=== PATIENT | male | born 1945 | race Caucasian/White ===

== ENCOUNTER 2019-06-12 15:40 | Emergency (ER) | payer OTHER ==
[~2019-06-12] VITALS: Ht 165.1 cm; Wt 99.8 kg
[2019-06-12] MEDS ORDERED: ASPIRIN 325 MG TABLET ONE (15:55)
[2019-06-12] MEDS ORDERED: DILTIAZEM HCL 25 MG IV ONE (15:56)
[2019-06-12 16:00] VITALS: BP 156/102
[2019-06-12] MEDS ORDERED: ASPIRIN 325 MG TABLET PO ONE (16:00)
[2019-06-12] MEDS ORDERED: DILTIAZEM HCL 25 MG IV IV ONE (16:00)
--- NOTE | 2019-06-12 16:06 | NUR ---
PT DOES NOT REMEMBER WHAT MEDICATION IS HE TAKING CURRENTLY. CAN NOT VERIFY HOME MEDICATION LIST.
[2019-06-12 16:23] LABS: EOSINOPHILS # (AUTO) 0.1 K/uL (0.0-0.7); EOSINOPHILS % (AUTO) 0.3 % (0.0-7.0); HEMATOCRIT 38.1 % (36.7-47.1); HEMOGLOBIN 11.7 g/dL (12.5-16.3); LYMPHOCYTES # (AUTO) 0.4 K/uL (20.0-40.0); LYMPHOCYTES % (AUTO) 1.6 % (20.5-51.5); MEAN CORPUSCULAR HEMOGLOBIN 23.8 uug (23.8-33.4); MEAN CORPUSCULAR HGB CONC 31 g/dL (32.5-36.3); MEAN CORPUSCULAR VOLUME 77.7 fL (73.0-96.2); MONOCYTES # (AUTO) 1.2 K/uL (2.0-10.0); MONOCYTES % (AUTO) 5.3 % (0.0-11.0); NEUTROPHILS # (AUTO) 20.8 K/uL (1.8-8.9); NEUTROPHILS % (AUTO) 92.8 % (38.5-71.5); PLATELET COUNT (AUTO) 277 K/uL (152-348); WHITE BLOOD COUNT (AUTO) 22.4 K/uL (3.6-10.2)
--- NOTE | 2019-06-12 16:34 | NUR ---
Nidia Tolentino, , stating he is a [facility] patient. Admitting speaking with her to obtain for information
[2019-06-12 16:37] LABS: CARBON DIOXIDE 32 mmol/L (21-32); CHLORIDE 99 mmol/L (98-107); CREATININE 1.4 mg/dL (0.6-1.3); GLUCOSE 212 mg/dL (74-106); POTASSIUM 4.6 mmol/L (3.5-5.1); UREA NITROGEN, BLOOD 22 mg/dL (7-18)
[2019-06-12 16:42] LABS: ALANINE AMINOTRANSFERASE 26 U/L (16-63); ALKALINE PHOSPHATASE 72 U/L (50-136); ASPARTATE AMINOTRANSFERASE 16 U/L (15-37); BILIRUBIN,DIRECT 0.4 mg/dL (0.0-0.2); BILIRUBIN,TOTAL 1.3 mg/dL (0.2-1.0); TOTAL PROTEIN, SERUM 7.2 g/dL (6.4-8.2)
[2019-06-12] MEDS ORDERED: HYDROCODONE/APAP 5-325MG TABLET PO ONE (17:00)
[2019-06-12] MEDS ORDERED: HYDROCODONE/APAP 5-325MG TABLET ONE (17:04)
[2019-06-12] MEDS ORDERED: FLUO40CA49 PO (17:04)
[2019-06-12] MEDS ORDERED: FEXO180T94 PO (17:05)
[2019-06-12] MEDS ORDERED: CEPH250C PO (17:05)
[2019-06-12] MEDS ORDERED: LOSA100T31 PO (17:05)
[2019-06-12] MEDS ORDERED: PRAV20TA4 PO (17:05)
[2019-06-12] MEDS ORDERED: PANT40TA4 PO (17:05)
[2019-06-12] MEDS ORDERED: CEFTRIAXONE /D5W 50ML IVPB **ER PYXIS IV ONE (17:45)
[2019-06-12] MEDS ORDERED: CEFTRIAXONE 1 G in IV DEXTROSE 5% 50 ML IV ONE (17:45)
[2019-06-12] MEDS ORDERED: IV NORMAL SALINE 1000 ML BAG IV ONE (17:45)
[2019-06-12] MEDS ORDERED: AZITHROMYCIN IV 500 MG in IV DEXTROSE 5% 250 ML IV ONE (17:45)
--- NOTE | 2019-06-12 18:27 | NUR ---
[facility] CALLED. AWAITING CALLBACK.
[2019-06-12] MEDS ORDERED: AZITHROMYCIN 500MG/ D5W 250ML IVPB **ER PYXIS ONLY IV ONE (18:48)
--- NOTE | 2019-06-12 18:57 | NUR ---
HAYDEN PAPPAS SPEAKING W/ DR. FLORES FROM [place].
--- NOTE | 2019-06-12 19:06 | NUR ---
SHIFT REPORT GIVEN TO NEIL SMITH.
--- NOTE | 2019-06-12 19:08 | NUR ---
Assumed care of patient. No acute distress noted. VSS.
--- NOTE | 2019-06-12 20:14 | NUR ---
Patient in bed, no acute distress noted. VSS. Awaiting further update from [facility].
[2019-06-12 20:34] LABS: BAND % (MANUAL) 19 % (0-10); LYMPHOCYTES % (MANUAL) 2 % (20-40); MONOCYTES % (MANUAL) 5 % (2-10); NEUTROPHILS % (MANUAL) 74 % (42-75)
--- NOTE | 2019-06-12 20:39 | NUR ---
SPoke to [facility], they are still looking for a bed for this patient.
--- NOTE | 2019-06-12 22:14 | NUR ---
SPoke to [facility], patient going to [facility] Accepting ALICIA GOMEZ Room- 5316-B Report #- [id number]
--- NOTE | 2019-06-12 22:19 | NUR ---
Report given to Susi SMITH at [facility] , Room 5370
--- NOTE | 2019-06-12 22:33 | NUR ---
Report given to SARAH Ye . [facility] ALS transport here for patient cloth picker. All belongings with patient . No acute distress. VSS at time of cloth picker. Chart/EMTALA forms/Belongings all taken with EMT
== END 2019-06-12 22:35 | disposition short-term general hospital (02) ==
LOC: ER 15:42
DX: I48.0 Paroxysmal atrial fibrillation (principal); R65.10 Systemic inflammatory response syndrome (SIRS) of non-infectious origin without acute organ dysfunction; E11.65 Type 2 diabetes mellitus with hyperglycemia; I50.9 Heart failure, unspecified; Z79.899 Other long term (current) drug therapy
CPT/HCPCS: 36415; 71045; 80048; 80076; 82962; 83605 ×2; 83880; 84484; 85007; 85025; 85730; 87040 ×2; 87400; 93005; 96365; 96375; 99285; J0456; J0696; J3490; 70030-TC; J7030; J7040